=== PATIENT | female | born 1945 | race Caucasian/White ===

== ENCOUNTER → 2018-04-30 | Outpatient (REF) | payer OTHER ==
[2018-04-30 17:07] LABS: BACTERIA, URINE AUTO NEGATIVE (NEGATIVE); RBC, URINE AUTO 1 /HPF (0-3); SQUAMOUS EPITHELIAL CELL UR AU 4 /HPF (0-6); WBC, URINE AUTO 2 /HPF (0-3)
== END ==
LOC: M LAB REF 16:30
DX: N39.0 Urinary tract infection, site not specified (principal)
CPT/HCPCS: 81015

== ENCOUNTER → 2019-12-24 | Outpatient (CLI) | payer MEDICARE ==
--- NOTE | 2019-12-24 15:04 | REP ---
MRI brain: 12/24/2019. Indication: Headache. Technique: Multiplanar short and long TR sequences of the brain were obtained without IV Gadolinium. Comparison: 03/04/2017. Findings: There are no areas of restricted diffusion. There is no intracranial mass effect, hydrocephalus or significant hemorrhage. There are a few small foci of elevated T2 signal within the cerebral hemispheres. The midline structures and craniocervical junction are unremarkable. The large intracranial flow voids are present. Impression: No acute intracranial process. 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 Electronically Signed by Preet Alfredo DO 12/24/2019 02:56 P
--- NOTE | 2019-12-24 15:19 | REP ---
Intracranial MRA: 12/24/2019. Indication: Aneurysm. Technique: 3-D [id number] imaging of the intracranial circulation was performed without IV Gadolinium. Comparison: 10/20/2018. 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 No new aneurysms are present intracranially. There is no intracranial AVM. Diminished signal within the right V4 segment suggests moderate atherosclerotic narrowing. No additional areas of significant intracranial vessel stenosis are present. 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 Moderate V4 segment, likely atherosclerotic stenosis. Electronically Signed by Preet Alfredo DO 12/24/2019 03:11 P
== END ==
LOC: M RAD 12:52
PROVIDERS: ATTEND Internal Medicine
DX: I67.1 Cerebral aneurysm, nonruptured (principal); G44.209 Tension-type headache, unspecified, not intractable

== ENCOUNTER → 2020-01-02 | Outpatient (CLI) | payer MEDICARE | LOC: M SLEEP 20:00 | PROVIDERS: ATTEND Nurse Practitioner Family | DX: R40.0 Somnolence (principal) ==

== ENCOUNTER → 2020-02-06 | Outpatient (CLI) | payer MEDICARE ==
--- NOTE | 2020-03-24 13:43 | SLEEPCENT ---
DATE: 02/06/2020 ORDERED BY: SOFIE Ruiz Nocturnal polysomnography was performed for the titration of pressure therapy in this patient with obstructive sleep apnea syndrome, apnea hypopnea index 26.4. For testing, a ResMed AirFit F20 full face mask of medium size was used, 4 cm of water pressure were applied to the circuit, and the lights were extinguished. Seven hours and 27 minutes of data were reviewed. There were 352 minutes of sleep identified. Sleep latency was normal at 22.5 minutes. REM latency was prolonged at 217 minutes. Sleep architecture improved later in the study with optimal pressure therapy. There were two REM cycles noted and overall sleep efficiency was 79.8%. The electrocardiogram showed a sinus rhythm with an average heart rate of 60 beats per minute. EEG showed normal waveforms for wake and sleep. Respiratory events were fully palliated with CPAP at a pressure of +9. Some limb activity was appreciated. Limb movement arousal index was 3.4. IMPRESSION: Obstructive sleep apnea syndrome (G47.33). RECOMMENDATION: Nightly use of pressure therapy 9 cm of water. MTDD
== END ==
LOC: M SLEEP 20:00
PROVIDERS: ATTEND Nurse Practitioner Family
DX: G47.33 Obstructive sleep apnea (adult) (pediatric) (principal)

== ENCOUNTER 2020-11-21 15:04 | Emergency (ER) | payer MEDICARE ==
[~2020-11-21] VITALS: Ht 157.5 cm; Wt 99.5 kg
[2020-11-21] MEDS ORDERED: SIMV20TA22 (15:19)
[2020-11-21] MEDS ORDERED: INCR1INH (15:19)
[2020-11-21] MEDS ORDERED: METO1TAB32 (15:19)
[2020-11-21] MEDS ORDERED: FURO40TA2 (15:19)
[2020-11-21] MEDS ORDERED: ELIQ5TAB (15:19)
[2020-11-21] MEDS ORDERED: OMEP-218 (15:19)
[2020-11-21] MEDS ORDERED: SPIR-10 (15:19)
[2020-11-21] MEDS ORDERED: BUSP15TA47 (15:19)
[2020-11-21] MEDS ORDERED: TRAZ-189 (15:19)
[2020-11-21 15:52] LABS: BASO % 0.4 % (0.0-1.0); EOS # 0.1 10^3/uL (0.0-0.5); EOS % 1.5 % (0.0-3.0); HEMATOCRIT 42.6 % (36.0-47.0); LYMPH # 1.8 10^3/uL (1.5-5.0); LYMPH % 35.2 % (24.0-44.0); MEAN CORPUSCULAR HEMOGLOBIN 31.4 pg (27.0-33.0); MEAN CORPUSCULAR HGB CONC 32.9 g/dl (32.0-36.5); MEAN CORPUSCULAR VOLUME 95.5 fl (80.0-96.0); MONO # 0.5 10^3/uL (0.0-0.8); MONO % 9.6 % (2.0-8.0); NEUTROPHILS # 2.8 10^3/uL (1.5-8.5); NEUTROPHILS % 53.1 % (36.0-66.0); PLATELET COUNT, AUTOMATED 207 10^3/uL (150-450); RED BLOOD COUNT 4.46 10^6/uL (4.00-5.40); WHITE BLOOD COUNT 5.2 10^3/uL (4.0-10.0)
--- NOTE | 2020-11-21 16:02 | REP ---
INDICATION: CHEST PAIN. COMPARISON: 08/17/2019 TECHNIQUE: Portable FINDINGS: The technique utilized in obtaining the radiograph has magnified the cardiac silhouette and accentuated the interstitial markings. The superior mediastinal structures are midline. The cardiac silhouette is unremarkable in size, shape, and position. The diaphragmatic surfaces of the lungs are regular, and the costophrenic angles are clear. The pulmonary angela are clear. The imaged osseous structures are intact. IMPRESSION: There is no acute cardiopulmonary disease. <Electronically signed by Hubert Santana > 11/21/20 [id number]
[2020-11-21 16:21] LABS: ALBUMIN 3.6 GM/DL (3.2-5.2); ALT/SGPT 21 U/L (12-78); BILIRUBIN,DIRECT 0.1 MG/DL (0.0-0.2); BILIRUBIN,TOTAL 0.4 MG/DL (0.2-1.0); BLOOD UREA NITROGEN 15 MG/DL (7-18); CALCIUM LEVEL 9.5 MG/DL (8.8-10.2); CARBON DIOXIDE LEVEL 31 MEQ/L (21-32); CHLORIDE LEVEL 107 MEQ/L (98-107); CREATININE FOR GFR 0.87 MG/DL (0.55-1.30); GLOMERULAR FILTRATION RATE > 60.0 (>39); GLUCOSE, FASTING 100 MG/DL (70-100); NT-PRO BNP 111 PG/ML (<125); POTASSIUM SERUM 3.6 MEQ/L (3.5-5.1); SODIUM LEVEL 143 MEQ/L (136-145); TOTAL PROTEIN 6.8 GM/DL (6.4-8.2)
[2020-11-21 17:51] LABS: CK-MB VALUE MASS < 1.0 NG/ML (<3.6); CPK CREATINE PHOSPHOKINASE 47 U/L (26-192); MB/CK RELATIVE INDEX 2.13 (< OR =4); TROPONIN I < 0.02 NG/ML (< 0.10)
[2020-11-21 18:34] VITALS: BP 144/90
--- NOTE | 2020-11-22 07:39 | ECGEPIP ---
[facility] - ED Test Date: 2020-11-21 Pat Name: AMANDA HINDS Department: Room: - Gender: Female [employer] Operator: JERRI : 1945 Requested By: LUZ MARINA HATFIELD Order Number: [id number] Reading MD: Johnny Khoury Measurements Intervals [place] Rate: 77 P: 21 KS: 128 QRS: 4 QRSD: 82 T: 41 QT: 388 QTc: 439 Interpretive Statements Normal sinus rhythm Minimal voltage criteria for LVH, may be normal variant ( R in aVL ) NSTTW ABNORMALITY(S) BASELINE ARTIFACT AFFECTS INTERPRETATION Electronically Signed on 11-22-2020 7:39:49 EDT by Johnny Khoury
== END 2020-11-21 18:36 | disposition home or self-care (01) ==
LOC: M ED 15:04
DX: R00.0 Tachycardia, unspecified (principal); R07.9 Chest pain, unspecified; E78.5 Hyperlipidemia, unspecified; I50.9 Heart failure, unspecified; G47.33 Obstructive sleep apnea (adult) (pediatric); I48.92 Unspecified atrial flutter; Z79.01 Long term (current) use of anticoagulants; Z87.891 Personal history of nicotine dependence